=== PATIENT | male | born 1990 | race Caucasian/White ===

== ENCOUNTER 2016-07-02 04:15 | Emergency (ER) | payer SELFPAY ==
[~2016-07-02] VITALS: Ht 172.7 cm; Wt 68.1 kg
[2016-07-02 04:29] VITALS: BP 118/79
[2016-07-02] MEDS ORDERED: ACETAMINOPHEN 500MG TABLET PO ONE (07:00)
[2016-07-02] MEDS ORDERED: LIDOCAINE HCL 1% 20ML VIAL (Pyxis) INJ INFIL ONE (07:00)
== END 2016-07-02 08:44 | disposition home or self-care (01) ==
LOC: ER 04:17
DX: S01.511A Laceration without foreign body of lip, initial encounter (principal); Z98.61 Coronary angioplasty status; Y04.0XXA Assault by unarmed brawl or fight, initial encounter; Y93.89 Activity, other specified; Y92.89 Other specified places as the place of occurrence of the external cause
CPT/HCPCS: 12011; 99283; J3490; X7700; Z7610